=== PATIENT | male | born 1960 | race Caucasian/White ===

== ENCOUNTER → 2020-02-05 | Outpatient (CLI) | payer MEDICAID ==
[~2020-02-05] MED LIST: ASCO500T8 PO; CYCL-259 PO; LEVO50TA5 PO; LORA-446 PO; MULT-449 PO; NAPR-685 PO; OMEG1CAP23 PO; TRAM50TA2 PO
[2020-02-05 11:22] LABS: MEAN CORPUSCULAR HEMOGLOBIN 32.6 pg (27.5-34.5); MEAN CORPUSCULAR VOLUME 96.1 fL (81-97); MEAN PLATELET VOLUME 8.2 fL (7.4-10.4); PLATELET COUNT 204 x10^3/uL (130-400); RED BLOOD COUNT 4.64 x10^6/uL (4.38-5.82); RED CELL DISTRIBUTION WIDTH 13.5 % (9.4-14.8)
[2020-02-05 11:23] LABS: BASOPHILS # (AUTO) 0.02 x10^3/uL (0-0.1); BASOPHILS % (AUTO) 0 % (0-1); EOSINOPHILS # (AUTO) 0.22 x10^3/uL (0-0.4); EOSINOPHILS % (AUTO) 3 % (1-7); LYMPHOCYTES # (AUTO) 1.54 x10^3/uL (1-3.4); LYMPHOCYTES % (AUTO) 22 % (22-44); MD NO; MONOCYTES # (AUTO) 1.03 x10^3/uL (0.2-0.8); MONOCYTES % (AUTO) 14 % (2-9); NEUTROPHILS # (AUTO) 4.36 x10^3/uL (1.8-6.8); NEUTROPHILS % (AUTO) 61 % (42-75)
[2020-02-05 12:04] LABS: ALBUMIN 4.3 g/dL (3.4-5.0); ANION GAP 5 mmol/L (5-15); CALCIUM 8.8 mg/dL (8.5-10.1); CHLORIDE 104 mmol/L (98-107)
[2020-02-05 12:06] LABS: ALANINE AMINOTRANSFERASE 47 U/L (12-78); ALKALINE PHOSPHATASE 79 U/L (45-117); BILIRUBIN,TOTAL 0.6 mg/dL (0.2-1.0); CREATININE 0.86 mg/dL (0.7-1.3); TOTAL PROTEIN 7.6 g/dL (6.4-8.2)
[2020-02-05 12:17] LABS: INTERNATIONAL NORMALIZED RATIO 0.99 (0.93-1.1); PROTHROMBIN TIME 10.5 Seconds (9.6-11.5)
== END | disposition home or self-care (01) ==
LOC: STAR 10:00
PROVIDERS: ATTEND Orthopaedic Surgery
DX: Z01.818 Encounter for other preprocedural examination (principal); M16.11 Unilateral primary osteoarthritis, right hip; M25.551 Pain in right hip; R94.31 Abnormal electrocardiogram [ECG] [EKG]
CPT/HCPCS: 36415; 80053; 83036; 85025; 85610; 85730; 87081; 93005

== ENCOUNTER 2020-02-12 05:17 | Observation (INO) | payer MEDICAID ==
[~2020-02-12] VITALS: Ht 175.3 cm; Wt 93.0 kg
[2020-02-12] MEDS ORDERED: LACTATED RINGERS 1,000 ML IV SCH (05:58)
[2020-02-12] MEDS ORDERED: CHLORHEXIDINE 15 ML UDC MM ONE (06:00)
[2020-02-12] MEDS ORDERED: GABAPENTIN 300 MG CAPSULE PO ONE (06:00)
[2020-02-12] MEDS ORDERED: ACETAMINOPHEN 500 MG TABLET PO ONE (06:00)
[2020-02-12] MEDS ORDERED: ROPIvacaine/PF 0.5%, 30 ML ONE (06:26)
[2020-02-12] MEDS ORDERED: ROPIvacaine/PF 0.5%, 20 ML ONE (06:26)
[2020-02-12] MEDS ORDERED: VANCOMYCIN 1,000 MG ONE (06:26)
[2020-02-12] MEDS ORDERED: TRANEXAMIC ACID 100 MG/ML, 10ML ONE ×2 (06:26)
[2020-02-12] MEDS ORDERED: KETOROLAC 60 MG/2 ML ONE (06:26)
[2020-02-12] MEDS ORDERED: EPINEPHRINE 1 MG/ML, 1ML ONE (06:27)
[2020-02-12] MEDS ORDERED: SODIUM CHLORIDE 0.9% 50 ML ONE (06:27)
[2020-02-12] MEDS ORDERED: METOPROLOL 1 MG/ML, 5ML ONE (06:47)
[2020-02-12] MEDS ORDERED: MIDAZOLAM 1 MG/ML, 2ML ONE (06:47)
[2020-02-12] MEDS ORDERED: FENTANYL PF 250 MCG/5ML ONE (06:48)
[2020-02-12] MEDS ORDERED: ZOLPIDEM 5MG TABLET PO PRN (07:00)
[2020-02-12] MEDS ORDERED: ONDANSETRON 2MG/ML, 2ML IV PRN (07:00)
[2020-02-12] MEDS ORDERED: SENNA/DOCUSATE TABLET PO PRN (07:00)
[2020-02-12] MEDS ORDERED: OXYcodone IR 5MG TABLET PO PRN (07:00)
[2020-02-12] MEDS ORDERED: DIPHENHYDRAMINE 25 MG CAPSULE PO PRN (07:00)
[2020-02-12] MEDS ORDERED: ONDANSETRON 4 MG TABLET PO PRN (07:00)
[2020-02-12] MEDS ORDERED: BISACODYL 10 MG SUPP PR PRN (07:00)
[2020-02-12] MEDS ORDERED: ACETAMINOPHEN 650 MG/20.3 ML UDC PO PRN (07:00)
[2020-02-12] MEDS ORDERED: MAGNESIUM HYDROXIDE 8%, 30ML UDC PO PRN (07:00)
[2020-02-12] MEDS ORDERED: DIAZEPAM 5 MG/ML, 2ML IVPush PRN (07:30)
[2020-02-12] MEDS ORDERED: MEPERIDINE/PF 25MG/0.5ML IVPush PRN (07:30)
[2020-02-12] MEDS ORDERED: OXYcodone 5 MG/5 ML ORAL.SOL UDC PO PRN (07:30)
[2020-02-12] MEDS ORDERED: ALBUTEROL SULFATE 2.5 MG/3 ML NPPB PRN (07:30)
[2020-02-12] MEDS ORDERED: PROMETHAZINE 25 MG/ML, 1ML IV PRN (07:30)
[2020-02-12] MEDS ORDERED: hydrALAzine 20 MG/ML, 1ML IV PRN (07:30)
[2020-02-12] MEDS ORDERED: KETOROLAC 30 MG/1 ML IV PRN (07:30)
[2020-02-12] MEDS ORDERED: ACETAMINOPHEN 325 MG TABLET PO PRN (07:30)
[2020-02-12] MEDS ORDERED: HYDROmorphone 2 MG/ML, 1ML IVPush PRN (07:30)
[2020-02-12] MEDS ORDERED: CEFAZOLIN 1,000 MG ONE (07:48)
[2020-02-12] MEDS ORDERED: PROPOFOL 10 MG/ML, 20ML ONE (07:48)
[2020-02-12] MEDS ORDERED: GLYCOPYRROLATE 0.2MG/1ML, 5ML ONE (07:48)
[2020-02-12] MEDS ORDERED: ONDANSETRON 2MG/ML, 2ML ONE (07:48)
[2020-02-12] MEDS ORDERED: DEXAMETHASONE 4 MG/ML, 1ML ONE (07:48)
[2020-02-12] MEDS ORDERED: NEOSTIGMINE 1 MG/ML, 10ML ONE (07:48)
[2020-02-12] MEDS ORDERED: SUCCINYLCHOLINE 20 MG/ML, 10ML ONE (07:48)
[2020-02-12] MEDS ORDERED: ROCURONIUM 10MG/ML,5ML ONE (07:48)
[2020-02-12] MEDS ORDERED: FENTANYL PF 100 MCG/2ML ONE (08:08)
[2020-02-12] MEDS: FENTANYL PF 100 MCG/2ML IV PRN ×3 (08:12→09:07)
[2020-02-12] MEDS ORDERED: TRANEXAMIC ACID 1,000 MG in SODIUM CHLORIDE 0.9% 100 ML IV ONE (08:30)
[2020-02-12] MEDS ORDERED: LABETALOL 5MG/ML, 20ML ONE (08:32)
[2020-02-12] MEDS: LABETALOL 5MG/ML, 20ML IV PRN ×2 (08:34→08:52)
[2020-02-12] MEDS ORDERED: OXYcodone 5 MG/5 ML ORAL.SOL UDC ONE (08:44)
[2020-02-12] MEDS ORDERED: ACETAMINOPHEN 650 MG/20.3 ML UDC ONE (08:44)
[2020-02-12] MEDS: DOCUSATE 100 MG CAPSULE PO SCH ×2 (09:00→21:16)
[2020-02-12] MEDS: CYCLOBENZAPRINE 10 MG TABLET PO SCH ×2 (09:00→21:16)
[2020-02-12] MEDS: LEVOTHYROXINE 50 MCG TABLET PO SCH (09:00)
[2020-02-12] MEDS: LORazepam 1MG TABLET PO SCH ×3 (09:00→21:16)
[2020-02-12] MEDS ORDERED: hydrALAzine 20 MG/ML, 1ML ONE (09:02)
[2020-02-12] MEDS: NS + 20MEQ KCL 1,000 ML IV SCH ×2 (11:23→23:46)
[2020-02-12 13:31] VITALS: BP 145/97
[2020-02-12] MEDS: HYDROcodone/APAP 5/325 TABLET PO PRN ×3 (15:32→23:44)
[2020-02-12] MEDS: CEFAZOLIN PMX 2GM/50ML 50 ML IVPB SCH ×2 (16:11→23:44)
[2020-02-12] MEDS: ASPIRIN 81 MG TABLET EC PO SCH (17:05)
[2020-02-12 19:28] VITALS: BP 126/85
[2020-02-12 23:25] VITALS: BP 156/81
[2020-02-13 03:42] VITALS: BP 141/87
[2020-02-13] MEDS: HYDROcodone/APAP 5/325 TABLET PO PRN ×2 (03:54→10:07)
[2020-02-13] MEDS ORDERED: DEXAMETHASONE 4 MG/ML, 1ML IVPush SCH (06:00)
[2020-02-13] MEDS: LEVOTHYROXINE 50 MCG TABLET PO SCH (06:13)
[2020-02-13] MEDS: ASPIRIN 81 MG TABLET EC PO SCH (06:13)
[2020-02-13 08:14] VITALS: BP 122/79
[2020-02-13] MEDS: DOCUSATE 100 MG CAPSULE PO SCH (09:02)
[2020-02-13] MEDS: CYCLOBENZAPRINE 10 MG TABLET PO SCH (09:04)
[2020-02-13] MEDS: LORazepam 1MG TABLET PO SCH (09:05)
[2020-02-13] MEDS: NS + 20MEQ KCL 1,000 ML IV SCH (11:16)
== END 2020-02-13 11:45 | disposition home or self-care (01) ==
LOC: OUT 05:17 → 4NE 09:46 → OUT 19:52 → 4NE 19:52 → DCLOUNGE 02-13 11:37
PROVIDERS: ADMIT Orthopaedic Surgery; ATTEND Orthopaedic Surgery
DX: Z03.818 Encounter for observation for suspected exposure to other biological agents ruled out (principal); M16.11 Unilateral primary osteoarthritis, right hip; M87.9 Osteonecrosis, unspecified; E11.9 Type 2 diabetes mellitus without complications; E66.9 Obesity, unspecified; F17.200 Nicotine dependence, unspecified, uncomplicated; Z88.0 Allergy status to penicillin; Z79.899 Other long term (current) drug therapy
CPT/HCPCS: 27130; 36415; 72170; 73501; 76000; 85014; 85018; 87635; 96365; 96366; 96375; 97162; 97166; 97530; C1713; C1776; G0378; J0171; J0330; J0360; J0690; J1100; J1885; J2250; J2405; J2704; J2710; J2795; J3010; J3370; J3480; J7120